=== PATIENT | female | born 1955 | race African-American/Black ===

== ENCOUNTER → 2016-09-27 | Outpatient (CLI) | payer OTHER ==
[2015-06-30 12:45] VITALS: BP 148/76
[~2016-09-27] MED LIST: AMLO1CAP15 PO; CRESTOR10 MG PO; LORA10TA68 PO; METF10002 PO
--- NOTE | 2016-09-28 12:56 | RAD ---
DATE: 09/27/2016 EXAM: DIGITAL SCREEN BILAT W/CAD HISTORY: Routine screening COMPARISON: Baseline study This study was interpreted with the benefit of Computerized Aided Detection (CAD). FINDINGS: There are scattered fibroglandular densities in the breasts. No suspicious mass or nodule is seen. There are scattered benign type calcifications. No suspicious microcalcifications are evident. IMPRESSION: There is no mammographic evidence of malignancy either breast. BI-RADS CATEGORY: 2 BENIGN FINDING(S) RECOMMENDED FOLLOW-UP: 12M 12 MONTH FOLLOW-UP PQRS compliance statement: Patient information was entered into a reminder system with a target due date for the next mammogram. Mammography is a sensitive method for finding small breast cancers, but it does not detect them all and is not a substitute for careful clinical examination. A negative mammogram does not negate a clinically suspicious finding and should not result in delay in biopsying a clinically suspicious abnormality. "Our facility is accredited by the [employer] Mammography Program."
== END | disposition home or self-care (01) ==
LOC: MAMMO 12:09
PROVIDERS: ATTEND Family Medicine
DX: Z12.31 Encounter for screening mammogram for malignant neoplasm of breast (principal)
CPT/HCPCS: G0202; 77067

== ENCOUNTER 2017-05-12 12:25 | Emergency (ER) | payer OTHER ==
[~2017-05-12] VITALS: Ht 162.6 cm; Wt 77.1 kg
[~2017-05-12 12:25] MED LIST changes: +METF-620 PO; -METF10002 PO
[2017-05-12] MEDS ORDERED: IV NORMAL SALINE 1000ML BAG 1,000 ML IV SCH (12:54)
[2017-05-12] MEDS ORDERED: FAMOTIDINE 20 MG/2 ML VIAL IVP ONE (13:00)
[2017-05-12] MEDS ORDERED: ONDANSETRON PF 4 MG/2 ML VIAL. IV ONE (13:00)
[2017-05-12] MEDS ORDERED: fentaNYL PF VIAL 100 MCG/2 ML VIAL IV PRN (13:00)
[2017-05-12 13:18] LABS: BILIRUBIN,URINE NEGATIVE (NEG); GLUCOSE,URINE 250 mg/dL (NEG); NITRITE,URINE NEGATIVE (NEG); PH,URINE 5.5; PROTEIN,URINE 30 mg/dL (NEG-TRACE)
[2017-05-12 13:19] LABS: BASO # 0.1 x10^3/uL (0.0-0.2); BASO % 1 % (0-3); EOS % 1 % (0-3); HEMATOCRIT 34.6 % (36.0-47.0); HEMOGLOBIN 11.3 g/dL (12.0-15.5); LYMPH % 23 % (24-48); MEAN CORPUSCULAR HEMOGLOBIN 28 pg (25-35); MEAN CORPUSCULAR HGB CONC 33 g/dL (31-37); MEAN CORPUSCULAR VOLUME 87 fL (79-100); MONO % 4 % (0-9); NEUT % 71 % (31-73); PLATELET COUNT 323 x10^3/uL (140-400); RED BLOOD COUNT 3.98 x10^6/uL (3.50-5.40); WHITE BLOOD COUNT 12.9 x10^3/uL (4.0-11.0)
--- NOTE | 2017-05-12 13:23 | EKG ---
[facility] [address] [place] [address] Test Date: 2017-05-12 Test Time: 12:56:43 Pat Name: MILTON DEJESUS Department: Room: Gender: F Superintendent Nonselling: : 1955 Requested By: JAIME GRANADO Order Number: [id number] Reading MD: Measurements Intervals Zenia Rate: 83 P: 50 WI: 134 QRS: 36 QRSD: 66 T: 52 QT: 364 QTc: 433 Interpretive Statements SINUS RHYTHM NO SPECIFIC ECG ABNORMALITIES RI6.01 No previous ECG available for comparison
[2017-05-12 13:24] LABS: CALCIUM 9.7 mg/dL (8.5-10.1); CREATININE 0.9 mg/dL (0.6-1.0); GFR 76.5; POTASSIUM 3.9 mmol/L (3.5-5.1)
[2017-05-12 13:29] LABS: BACTERIA,URINE MANY /HPF (0-FEW); SQUAMOUS EPITHELIAL CELL,UR MOD /LPF
[2017-05-12 13:30] LABS: ALBUMIN 3.1 g/dL (3.4-5.0); ALBUMIN/GLOBULIN RATIO 0.7 (1.0-1.7); TOTAL BILIRUBIN 0.4 mg/dL (0.2-1.0); TOTAL PROTEIN 7.4 g/dL (6.4-8.2)
[2017-05-12] MEDS ORDERED: IOHEXOL 300 MG/ML 100ML VIAL. IV ONE (14:00)
[2017-05-12] MEDS ORDERED: CONTRAST GIVEN MC PRN (14:00)
[2017-05-12] MEDS ORDERED: HYDR-971 PO (14:47)
[2017-05-12] MEDS ORDERED: ONDA4TAB10 SL (14:47)
--- NOTE | 2017-05-12 14:48 | PHYS DOC ---
Past Medical History Past Medical History: Diabetes-Type II, High Cholesterol, Hypertension Past Surgical History: Cholecystectomy Additional Information: 0.5 PPD Alcohol Use: None Drug Use: None Adult General Chief Complaint Chief Complaint: FLANK PAIN HPI HPI Patient is a 61 year old female who presents with complaint of right-sided abdominal pain. Patient states that her symptoms have been present over the past 3 days. Patient states that the pain feels like pressure and sharpness. The patient has history of hypertension and type 2 diabetes mellitus. Patient states that she is having pain radiating into her right shoulder. Patient took ibuprofen with no relief in symptoms. Patient denies history of similar pain. Patient has had history of cholecystectomy many years ago. Patient denies any other surgeries. Patient rates her pain currently as 9 out of 10. Review of Systems Review of Systems Constitutional: Denies fever or chills [] Eyes: Denies change in visual acuity, redness, or eye pain [] HENT: Denies nasal congestion or sore throat [] Respiratory: Denies cough or shortness of breath [] Cardiovascular: Denies chest pain or edema[] GI: Abdominal pain, denies nausea, vomiting, or diarrhea[] : Denies dysuria or hematuria [] Musculoskeletal: Denies back pain or joint pain [] Integument: Denies rash or skin lesions [] Neurologic: Denies headache, focal weakness or sensory changes [] All other systems were reviewed and found to be within normal limits, except as documented in this note. Current Medications Current Medications Current Medications Medications (Trade) Dose Ordered Sig/Jaskaran Start Time Stop Time Status Last Admin Dose Admin Famotidine (Pepcid Vial) 20 mg 1X ONCE 05/12/17 13:00 05/12/17 13:01 DC 05/12/17 13:22 20 MG Fentanyl Citrate (Fentanyl 2ml Vial) 50 mcg PRN Q15MIN PRN 05/12/17 13:00 05/13/17 12:59 05/12/17 13:22 50 MCG Info (Do NOT chart on this entry -- for MONITORING) 1 each PRN DAILY PRN 05/12/17 14:00 05/14/17 13:59 Iohexol (Omnipaque 300 Mg/ml) 75 ml 1X ONCE 05/12/17 14:00 05/12/17 14:01 DC 05/12/17 14:13 75 ML Ondansetron HCl (Zofran) 4 mg 1X ONCE 05/12/17 13:00 05/12/17 13:01 DC 05/12/17 13:21 4 MG Sodium Chloride 1,000 ml @ 1,000 mls/hr Q1H 05/12/17 12:54 05/12/17 13:53 DC 05/12/17 13:20 1,000 MLS/HR Allergies Allergies Allergies Coded Allergies Type Severity Reaction Last Updated Verified Penicillins Allergy Intermediate rash 06/30/15 No Physical Exam Physical Exam Constitutional: Alert, afebrile, appears in mild discomfort. [] HENT: Normocephalic, atraumatic, bilateral external ears normal, oropharynx moist, no oral exudates, nose normal. [] Eyes: PERRLA, EOMI, conjunctiva normal, no discharge. [] Neck: Normal range of motion, no tenderness, supple, no stridor. [] Cardiovascular:Heart rate regular rhythm, no murmur [] Lungs & Thorax: Bilateral breath sounds clear to auscultation [] Abdomen: Bowel sounds normal, soft, epigastric and right upper quadrant tenderness to palpation, minimal guarding, no rebound tenderness, no masses, no pulsatile masses. [] Skin: Warm, dry, no erythema, no rash. [] Back: No tenderness, no CVA tenderness. [] Extremities: No tenderness, no cyanosis, no clubbing, ROM intact, no edema. [] Neurologic: Alert and oriented X 3, normal motor function, normal sensory function, no focal deficits noted. [] Current Patient Data Vital Signs Vital Signs Date Time Temp Pulse Resp B/P (MAP) Pulse Ox O2 Delivery O2 Flow Rate FiO2 05/12/17 14:46 86 135/69 (91) Room Air 05/12/17 14:30 18 99 05/12/17 12:35 98.9 98.9 Lab Values Laboratory Tests Test 05/12/17 12:35 05/12/17 13:03 Urine Collection Type Unknown Urine Color Yellow Urine Clarity Clear Urine pH 5.5 Urine Specific Greer 1.020 Urine Protein 30 mg/dL (NEG-TRACE) Urine Glucose (UA) 250 mg/dL (NEG) Urine Ketones (Stick) Negative mg/dL (NEG) Urine Blood Negative (NEG) Urine Nitrite Negative (NEG) Urine Bilirubin Negative (NEG) Urine Urobilinogen Dipstick 1.0 mg/dL (0.2 mg/dL) Urine Leukocyte Esterase Trace (NEG) Urine RBC 1-2 /HPF (0-2) Urine WBC 1-4 /HPF (0-4) Urine Squamous Epithelial Cells Mod /LPF Urine Bacteria Many /HPF (0-FEW) Urine Mucus Mod /LPF White Blood Count 12.9 x10^3/uL (4.0-11.0) H Red Blood Count 3.98 x10^6/uL (3.50-5.40) Hemoglobin 11.3 g/dL (12.0-15.5) L Hematocrit 34.6 % (36.0-47.0) L Mean Corpuscular Volume 87 fL (79-100) Mean Corpuscular Hemoglobin 28 pg (25-35) Mean Corpuscular Hemoglobin Concent 33 g/dL (31-37) Red Cell Distribution Width 15.0 % (11.5-14.5) H Platelet Count 323 x10^3/uL (140-400) Neutrophils (%) (Auto) 71 % (31-73) Lymphocytes (%) (Auto) 23 % (24-48) L Monocytes (%) (Auto) 4 % (0-9) Eosinophils (%) (Auto) 1 % (0-3) Basophils (%) (Auto) 1 % (0-3) Neutrophils # (Auto) 9.1 x10^3uL (1.8-7.7) H Lymphocytes # (Auto) 3.0 x10^3/uL (1.0-4.8) Monocytes # (Auto) 0.6 x10^3/uL (0.0-1.1) Eosinophils # (Auto) 0.1 x10^3/uL (0.0-0.7) Basophils # (Auto) 0.1 x10^3/uL (0.0-0.2) Sodium Level 136 mmol/L (136-145) Potassium Level 3.9 mmol/L (3.5-5.1) Chloride Level 101 mmol/L (98-107) Carbon Dioxide Level 27 mmol/L (21-32) Anion Gap 8 (6-14) Blood Urea Nitrogen 18 mg/dL (7-20) Creatinine 0.9 mg/dL (0.6-1.0) Estimated GFR (Cockcroft-Gault) 76.5 BUN/Creatinine Ratio 20 (6-20) Glucose Level 241 mg/dL (70-99) H Calcium Level 9.7 mg/dL (8.5-10.1) Total Bilirubin 0.4 mg/dL (0.2-1.0) Aspartate Amino Transferase (AST) 12 U/L (15-37) L Alanine Aminotransferase (ALT) 19 U/L (14-59) Alkaline Phosphatase 120 U/L (46-116) H Total Protein 7.4 g/dL (6.4-8.2) Albumin 3.1 g/dL (3.4-5.0) L Albumin/Globulin Ratio 0.7 (1.0-1.7) L Lipase 446 U/L (73-393) H Laboratory Tests 05/12/17 13:03 Laboratory Tests 05/12/17 13:03 EKG EKG Interpreted by me: Heart rate 83, sinus rhythm, normal intervals, normal axis, no acute ST/T-wave abnormalities present[] Radiology/Procedures Radiology/Procedures [facility] [address] [place] [address] IMAGING REPORT Signed PATIENT: MILTON DEJESUS ACCOUNT: [id number] : 1955 LOCATION: ER AGE: 61 SEX: F EXAM STATUS: REG ER ORD. PHYSICIAN: JAIME GRANADO MD REASON: RUQ abdominal pain, pancreatitis, history of cholecystectomy PROCEDURE: CT ABD PELV W/ IV CONTRST ONLY CT ABD PELV W/ IV CONTRST ONLY History:Right upper quadrant abdominal pain, pancreatitis, history of cholecystectomy. Technique: After administration of intravenous contrast, CT imaging was performed of the abdomen and pelvis, multiplanar reconstruction images submitted. No oral contrast was given as per request. Exposure: One or more of the following individualized dose reduction techniques were utilized for this exam: 1. Automated exposure control.2. Adjustment of the mA and/or KV according to patient size.3. Use of iterative reconstruction technique. Contrast: 75 cc Omnipaque 300 Comparison: None Findings: There is coronary calcification. There is mild atelectasis of the lung bases. Both kidneys enhance, no hydronephrosis. Small hypodense lesion of the superior left kidney 0.5 cm is too small to otherwise accurately characterize. There is diffuse atherosclerotic calcification normal caliber abdominal aorta. 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 There are also stenoses of the common iliac arteries greater on the left. No focal abnormality is identified of the liver or spleen. Pancreatic duct at the level of pancreatic head is slightly prominent, also vague area of relative hypodensity of the pancreatic head. Accurate evaluation of bowel is limited without oral contrast. There is no free air or free fluid. Segments of small bowel are upper limits of normal in caliber up to 3.9 cm. Ureter bladder is somewhat distended. Appendix is difficult to confidently visualize. There has been cholecystectomy. Impression: 1.Pancreatic duct at the level of the pancreatic head is slightly prominent, some vague relative hypodensity of the pancreatic head which could be due to pancreatitis in the appropriate clinical setting. Follow-up may be beneficial to ensure stability. There has been cholecystectomy. 2. Segments of small bowel are upper limits of normal caliber with some internal fluid although no significant inflammatory change. 3. 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 There are also stenoses of the common iliac arteries greater on the left. 4. There is coronary calcification. DICTATED and SIGNED BY: YENY VENTURA MD DATE: 05/12/17 1442 CC: SONIDO BOONE JR, MD; JAIME GRANADO MD ~ [] Course & Med Decision Making Course & Med Decision Making Pertinent Labs and Imaging studies reviewed. (See chart for details) Patient was given IV fluids, fentanyl, Zofran, and Pepcid. Patient's symptoms have improved at this time. The patient has evidence of acute pancreatitis. Etiology is not quite clear as to the cause however her symptoms appear mild at this time and patient is appropriate for outpatient referral. Patient was also noted to have signs of mesenteric artery stenosis. The patient is not showing evidence of acute mesenteric ischemia. I did speak with the patient regarding this finding and need for close follow-up. Patient will be referred to Dr. Jacques of gastroenterology. The patient was also recommended follow-up with primary doctor in 2-3 days for reevaluation. Advised return emergency department for any worsening symptoms. Patient voiced understanding and in agreement with treatment plan. Dragon Disclaimer Dragon Disclaimer This electronic medical record was generated, in whole or in part, using a voice recognition dictation system. Departure Departure Impression: Primary Impression: Acute pancreatitis Disposition: 01 HOME, SELF-CARE Condition: IMPROVED Referrals: SONIDO BOONE JR, MD (PCP) Patient Instructions: Acute Pancreatitis Additional Instructions: Follow-up with the primary doctor in the next 2-3 days for reevaluation. Be sure to schedule a follow-up appointment with Dr. Jacques of gastroenterology in 1-2 weeks. You'll need to continue with a clear liquid diet over the next 24- 48 hours until symptoms improve, then you may eat a regular diet as tolerated. Return to emergency department for any worsening symptoms. Scripts Ondansetron (ZOFRAN ODT) 4 Mg Tab.rapdis 1 TAB SL Q8HRS Y for NAUSEA/VOMITING, #15 TAB Prov: JAIME GRANADO MD 05/12/17 Hydrocodone/Apap 5-325 (NORCO 5-325 TABLET) 1 Each Tablet 1-2 TAB PO Q4-6HRS Y for PAIN, #20 TAB Prov: JAIME GRANADO MD 05/12/17 Problem Qualifiers Primary Impression: Acute pancreatitis Pancreatitis type: idiopathic Acute pancreatitis complication: unspecified Qualified Codes: K85.00 - Idiopathic acute pancreatitis without necrosis or infection JAIME GRANADO MD May 12, 2017 14:48
--- NOTE | 2017-05-12 14:54 | RAD ---
CT ABD PELV W/ IV CONTRST ONLY History:Right upper quadrant abdominal pain, pancreatitis, history of cholecystectomy. Technique: After administration of intravenous contrast, CT imaging was performed of the abdomen and pelvis, multiplanar reconstruction images submitted. No oral contrast was given as per request. Exposure: One or more of the following individualized dose reduction techniques were utilized for this exam: 1. Automated exposure control.2. Adjustment of the mA and/or KV according to patient size.3. Use of iterative reconstruction technique. Contrast: 75 cc Omnipaque 300 Comparison: None Findings: There is coronary calcification. There is mild atelectasis of the lung bases. Both kidneys enhance, no hydronephrosis. Small hypodense lesion of the superior left kidney 0.5 cm is too small to otherwise accurately characterize. There is diffuse atherosclerotic calcification normal caliber abdominal aorta. 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 There are also stenoses of the common iliac arteries greater on the left. No focal abnormality is identified of the liver or spleen. Pancreatic duct at the level of pancreatic head is slightly prominent, also vague area of relative hypodensity of the pancreatic head. Accurate evaluation of bowel is limited without oral contrast. There is no free air or free fluid. Segments of small bowel are upper limits of normal in caliber up to 3.9 cm. Ureter bladder is somewhat distended. Appendix is difficult to confidently visualize. There has been cholecystectomy. Impression: 1.Pancreatic duct at the level of the pancreatic head is slightly prominent, some vague relative hypodensity of the pancreatic head which could be due to pancreatitis in the appropriate clinical setting. Follow-up may be beneficial to ensure stability. There has been cholecystectomy. 2. Segments of small bowel are upper limits of normal caliber with some internal fluid although no significant inflammatory change. 3. 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 There are also stenoses of the common iliac arteries greater on the left. 4. There is coronary calcification.
[2017-05-12 15:00] VITALS: BP 130/66
== END 2017-05-12 15:17 | disposition home or self-care (01) ==
LOC: ER 12:25
DX: K85.00 Idiopathic acute pancreatitis without necrosis or infection (principal); E11.9 Type 2 diabetes mellitus without complications; E78.00 Pure hypercholesterolemia, unspecified; I10 Essential (primary) hypertension; F17.200 Nicotine dependence, unspecified, uncomplicated; Z90.49 Acquired absence of other specified parts of digestive tract; Z88.0 Allergy status to penicillin
CPT/HCPCS: 36415; 74177; 80053; 81001; 83690; 85025; 87086; 93005; 96361; 96374; 96375; 99285; J2405; J3010; J7030; Q9967; S0028

== ENCOUNTER 2018-03-07 13:48 | Emergency (ER) | payer OTHER ==
[~2018-03-07] VITALS: Ht 162.6 cm; Wt 88.9 kg
[~2018-03-07 13:48] MED LIST changes: +HYDR-971 PO; -METF-620 PO; +METF10007 PO; +ONDA4TAB10 SL
[2018-03-07 14:30] VITALS: BP 172/80
[2018-03-07] MEDS ORDERED: CLIN150C14 PO (15:16)
[2018-03-07] MEDS ORDERED: NAPR-695 PO (15:16)
--- NOTE | 2018-03-07 15:17 | PHYS DOC ---
Past Medical History Past Medical History: Diabetes-Type II, High Cholesterol, Hypertension Past Surgical History: Cholecystectomy Alcohol Use: None Drug Use: None Adult General Chief Complaint Chief Complaint: SORE THROAT HPI HPI Patient is a 62 year old [f__sex] who presents with [] Review of Systems Review of Systems Constitutional: Denies fever or chills [] Eyes: Denies change in visual acuity, redness, or eye pain [] HENT: Denies nasal congestion or sore throat [] Respiratory: Denies cough or shortness of breath [] Cardiovascular: No additional information not addressed in HPI [] GI: Denies abdominal pain, nausea, vomiting, bloody stools or diarrhea [] : Denies dysuria or hematuria [] Musculoskeletal: Denies back pain or joint pain [] Integument: Denies rash or skin lesions [] Neurologic: Denies headache, focal weakness or sensory changes [] Endocrine: Denies polyuria or polydipsia [] All other systems were reviewed and found to be within normal limits, except as documented in this note. Allergies Allergies Allergies Coded Allergies Type Severity Reaction Last Updated Verified Penicillins Allergy Intermediate rash 06/30/15 No Physical Exam Physical Exam Constitutional: Well developed, well nourished, no acute distress, non-toxic appearance. [] HENT: Normocephalic, atraumatic, bilateral external ears normal, oropharynx moist, no oral exudates, nose normal. [] Eyes: PERRLA, EOMI, conjunctiva normal, no discharge. [] Neck: Normal range of motion, no tenderness, supple, no stridor. [] Cardiovascular:Heart rate regular rhythm, no murmur [] Lungs & Thorax: Bilateral breath sounds clear to auscultation [] Abdomen: Bowel sounds normal, soft, no tenderness, no masses, no pulsatile masses. [] Skin: Warm, dry, no erythema, no rash. [] Back: No tenderness, no CVA tenderness. [] Extremities: No tenderness, no cyanosis, no clubbing, ROM intact, no edema. [] Neurologic: Alert and oriented X 3, normal motor function, normal sensory function, no focal deficits noted. [] Psychologic: Affect normal, judgement normal, mood normal. [] Current Patient Data Lab Values Laboratory Tests Test 03/07/18 14:45 Group A Streptococcus Rapid Negative (NEGATIVE) EKG EKG [] Radiology/Procedures Radiology/Procedures [] Course & Med Decision Making Course & Med Decision Making Pertinent Labs and Imaging studies reviewed. (See chart for details) [] Dragon Disclaimer Dragon Disclaimer This electronic medical record was generated, in whole or in part, using a voice recognition dictation system. Departure Departure Impression: Primary Impression: Dental abscess Additional Impression: Chronic dental pain Disposition: HOME, SELF-CARE Condition: STABLE Referrals: UNKNOWN PCP NAME (PCP) Patient Instructions: Dental Abscess, Dental Pain, [id number] Additional Instructions: Fill the prescriptions and use as directed. Follow up with a dentist for further treatment of you symptoms. A dental list has been provided to you. Return to the ER if your symptoms worsen. Scripts Naproxen (NAPROXEN) 375 Mg Tablet 1 TAB PO BID for 10 Days, #20 TAB 0 Refills Prov: TERA DALY APRN 03/07/18 Clindamycin Hcl (CLINDAMYCIN HCL) 150 Mg Capsule 450 MG PO TID for 10 Days, #90 CAP 0 Refills Prov: TERA DALY STICK FEEDER 03/07/18 Problem Qualifiers TERA DALY STICK FEEDER Mar 07, 2018 15:17
== END 2018-03-07 15:26 | disposition home or self-care (01) ==
LOC: ER 13:48
DX: K04.7 Periapical abscess without sinus (principal); G89.29 Other chronic pain; E11.9 Type 2 diabetes mellitus without complications; E78.00 Pure hypercholesterolemia, unspecified; I10 Essential (primary) hypertension; Z90.49 Acquired absence of other specified parts of digestive tract; Z88.0 Allergy status to penicillin
CPT/HCPCS: 87070; 87880; 99283

== ENCOUNTER 2018-03-14 15:01 | Emergency (ER) | payer OTHER ==
[~2018-03-14] VITALS: Ht 162.6 cm; Wt 79.4 kg
[~2018-03-14 15:01] MED LIST changes: +CLIN150C14 PO; +NAPR-695 PO
[2018-03-14 15:06] VITALS: BP 161/77
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
[2018-03-14] MEDS ORDERED: DICL50TA4 PO (17:45)
[2018-03-14] MEDS ORDERED: CYCL10TA2 PO (17:45)
== END 2018-03-14 17:58 | disposition home or self-care (01) ==
LOC: ER 15:01
DX: S16.1XXA Strain of muscle, fascia and tendon at neck level, initial encounter (principal); M54.6 Pain in thoracic spine; R07.81 Pleurodynia; E78.00 Pure hypercholesterolemia, unspecified; E11.9 Type 2 diabetes mellitus without complications; I10 Essential (primary) hypertension; Z88.0 Allergy status to penicillin; V43.52XA Car driver injured in collision with other type car in traffic accident, initial encounter; Y92.488 Other paved roadways as the place of occurrence of the external cause; Y93.89 Activity, other specified; Y99.8 Other external cause status
CPT/HCPCS: 71101; 72040; 72072; 99284

== ENCOUNTER 2018-10-02 11:20 | Emergency (ER) | payer OTHER ==
[~2018-10-02] VITALS: Ht 162.6 cm; Wt 77.1 kg
[~2018-10-02 11:20] MED LIST changes: +CYCL10TA2 PO; +DICL50TA4 PO; +HYDR-3164 PO; -HYDR-971 PO
[2018-10-02] MEDS ORDERED: DEXAMETHASONE 4 MG TABLET PO ONE (12:00)
--- NOTE | 2018-10-02 12:23 | RAD ---
Chest, 2 views, 10/02/2018 HISTORY: Cough, mucus, chest pain Comparison is made to a study from 03/14/2018. The depth of inspiration is suboptimal on the PA view producing prominence of the basilar pulmonary markings. The heart size is normal. No pulmonary consolidation is seen. There is no evidence of pleural fluid. Mild scattered degenerative changes are evident in the spine. IMPRESSION: No acute abnormality is detected. Electronically signed by: Ha Burrell MD (10/02/2018 12:21 PM) [facility]
[2018-10-02] MEDS ORDERED: PRED20TA PO (13:26)
[2018-10-02] MEDS ORDERED: BENZ100C PO (13:26)
--- NOTE | 2018-10-02 13:26 | PHYS DOC ---
Past Medical History Past Medical History: Diabetes-Type II, High Cholesterol, Hypertension Past Surgical History: Cholecystectomy Alcohol Use: Occasionally Drug Use: None Adult General Chief Complaint Chief Complaint: COUGH HPI HPI Patient is a 63 year old [f__sex] who presents with [] Review of Systems Review of Systems Constitutional: Denies fever or chills [] Eyes: Denies change in visual acuity, redness, or eye pain [] HENT: Denies nasal congestion or sore throat [] Respiratory: Denies cough or shortness of breath [] Cardiovascular: No additional information not addressed in HPI [] GI: Denies abdominal pain, nausea, vomiting, bloody stools or diarrhea [] : Denies dysuria or hematuria [] Musculoskeletal: Denies back pain or joint pain [] Integument: Denies rash or skin lesions [] Neurologic: Denies headache, focal weakness or sensory changes [] Endocrine: Denies polyuria or polydipsia [] All other systems were reviewed and found to be within normal limits, except as documented in this note. Current Medications Current Medications Current Medications Medications (Trade) Dose Ordered Sig/Jaskaran Start Time Stop Time Status Last Admin Dose Admin Dexamethasone (Decadron) 10 mg 1X ONCE 10/02/18 12:00 10/02/18 12:01 DC 10/02/18 12:09 10 MG Allergies Allergies Allergies Coded Allergies Type Severity Reaction Last Updated Verified Penicillins Allergy Intermediate rash 06/30/15 No Physical Exam Physical Exam Constitutional: Well developed, well nourished, no acute distress, non-toxic appearance. [] HENT: Normocephalic, atraumatic, bilateral external ears normal, oropharynx moist, no oral exudates, nose normal. [] Eyes: PERRLA, EOMI, conjunctiva normal, no discharge. [] Neck: Normal range of motion, no tenderness, supple, no stridor. [] Cardiovascular:Heart rate regular rhythm, no murmur [] Lungs & Thorax: Bilateral breath sounds clear to auscultation [] Abdomen: Bowel sounds normal, soft, no tenderness, no masses, no pulsatile masses. [] Skin: Warm, dry, no erythema, no rash. [] Back: No tenderness, no CVA tenderness. [] Extremities: No tenderness, no cyanosis, no clubbing, ROM intact, no edema. [] Neurologic: Alert and oriented X 3, normal motor function, normal sensory function, no focal deficits noted. [] Psychologic: Affect normal, judgement normal, mood normal. [] Current Patient Data Vital Signs Vital Signs Date Time Temp Pulse Resp B/P (MAP) Pulse Ox O2 Delivery O2 Flow Rate FiO2 10/02/18 11:41 98.5 16 163/75 (104) 95 Room Air 98.5 EKG EKG @1132 NSR at 85bpm, NO ST elevation, Q wave in III Radiology/Procedures Radiology/Procedures PROCEDURE: CHEST PA & LATERAL Chest, 2 views, 10/02/2018 HISTORY: Cough, mucus, chest pain Comparison is made to a study from 03/14/2018. The depth of inspiration is suboptimal on the PA view producing prominence of the basilar pulmonary markings. The heart size is normal. No pulmonary consolidation is seen. There is no evidence of pleural fluid. Mild scattered degenerative changes are evident in the spine. IMPRESSION: No acute abnormality is detected. Electronically signed by: Ha Burrell MD (10/02/2018 12:21 PM) [facility] Course & Med Decision Making Course & Med Decision Making Pertinent Labs and Imaging studies reviewed. (See chart for details) [] Dragon Disclaimer Dragon Disclaimer This electronic medical record was generated, in whole or in part, using a voice recognition dictation system. Departure Departure Impression: Primary Impression: Bronchitis Disposition: 01 HOME, SELF-CARE Condition: STABLE Referrals: UNKNOWN PCP NAME (PCP) Patient Instructions: Acute Bronchitis, [id number] Scripts Benzonatate (TESSALON PERLE) 100 Mg Capsule 100 MG PO TID PRN for COUGH, #20 CAP Prov: REMBERTO RANKIN DO 10/02/18 Prednisone (PREDNISONE) 20 Mg Tablet 2 TAB PO DAILY, #8 TAB Please start this prescription tomorrow, 10/03/18 Prov: REMBERTO RANKIN DO 10/02/18 REMBERTO RANKIN DO Oct 02, 2018 13:26
[2018-10-02 13:29] VITALS: BP 166/77
--- NOTE | 2018-10-02 15:59 | EKG ---
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
== END 2018-10-02 13:29 | disposition home or self-care (01) ==
LOC: ER 11:20
DX: J40 Bronchitis, not specified as acute or chronic (principal); R07.89 Other chest pain; E11.9 Type 2 diabetes mellitus without complications; E78.00 Pure hypercholesterolemia, unspecified; I10 Essential (primary) hypertension; Z90.49 Acquired absence of other specified parts of digestive tract; Z88.0 Allergy status to penicillin
CPT/HCPCS: 71046; 93005; 99284; J8540

== ENCOUNTER 2018-11-04 08:45 | Emergency (ER) | payer OTHER ==
[~2018-11-04] VITALS: Ht 162.6 cm; Wt 77.1 kg
[2018-11-04 08:45] VITALS: BP 176/83
[~2018-11-04 08:45] MED LIST changes: +BENZ100C PO; +PRED20TA PO
[2018-11-04 09:07] LABS: BASO # 0.1 x10^3/uL (0.0-0.2); BASO % 1 % (0-3); EOS # 0.1 x10^3/uL (0.0-0.7); EOS % 1 % (0-3); HEMATOCRIT 35.7 % (36.0-47.0); HEMOGLOBIN 11.8 g/dL (12.0-15.5); LYMPH # 3.3 x10^3/uL (1.0-4.8); LYMPH % 26 % (24-48); MEAN CORPUSCULAR HEMOGLOBIN 28 pg (25-35); MEAN CORPUSCULAR HGB CONC 33 g/dL (31-37); MEAN CORPUSCULAR VOLUME 85 fL (79-100); MONO # 0.6 x10^3/uL (0.0-1.1); MONO % 4 % (0-9); NEUT # 8.6 x10^3uL (1.8-7.7); NEUT % 68 % (31-73); PLATELET COUNT 330 x10^3/uL (140-400); RED CELL DISTRIBUTION WIDTH 15.8 % (11.5-14.5); WHITE BLOOD COUNT 12.7 x10^3/uL (4.0-11.0)
[2018-11-04 09:10] LABS: CALCIUM 9.4 mg/dL (8.5-10.1); CREATININE 0.9 mg/dL (0.6-1.0)
--- NOTE | 2018-11-04 09:12 | PHYS DOC ---
Past Medical History Past Medical History: Diabetes-Type II, High Cholesterol, Hypertension (SUDARSHAN FLORES APRN) Past Surgical History: Cholecystectomy (SUDARSHAN FLORES APRN) Alcohol Use: Occasionally Drug Use: None (SUDARSHAN FLORES APRN) Adult General Chief Complaint Chief Complaint: DIZZY/LIGHT HEADED HPI HPI Patient is a 63 year old female who presents with dizziness upon standing this morning. The patient states that she felt like she was going to pass out for a minute. She states that she recently saw her physician for a persistent cough and was given codeine cough medication. She states that the Mucinex in the medication made her sick. She states that she has continued to have a persistent cough. The patient is a heavy smoker. She denies chest pain, current dizziness or other associated symptoms. (SUDARSHAN FLORES APRN) Review of Systems Review of Systems Constitutional: Denies fever or chills [] Eyes: Denies change in visual acuity, redness, or eye pain [] HENT: Denies nasal congestion or sore throat [] Respiratory: See history of present illness Cardiovascular: No additional information not addressed in HPI [] GI: Denies abdominal pain, nausea, vomiting, bloody stools or diarrhea [] : Denies dysuria or hematuria [] Musculoskeletal: Denies back pain or joint pain [] Integument: Denies rash or skin lesions [] Neurologic: See history of present illness Endocrine: Denies polyuria or polydipsia [] All other systems were reviewed and found to be within normal limits, except as documented in this note. (SUDARSHAN FLORES APRN) Allergies Allergies Allergies Coded Allergies Type Severity Reaction Last Updated Verified Penicillins Allergy Intermediate rash 06/30/15 No (LIONEL BILLS MD) Physical Exam Physical Exam Constitutional: Well developed, well nourished, no acute distress, non-toxic appearance. [] HENT: Normocephalic, atraumatic, bilateral and panic membranes normal, oropharynx moist, no oral exudates, nose normal. [] Eyes: PERRLA, EOMI, conjunctiva normal, no discharge. [] Neck: Normal range of motion, no tenderness, supple, no stridor. [] Cardiovascular:Heart rate regular rhythm, no murmur [] Lungs & Thorax: Bilateral breath sounds clear to auscultation with no wheezes or rhonchi noted, hacking cough noted [] Abdomen: Bowel sounds normal, soft, no tenderness, no masses, no pulsatile masses. [] Skin: Warm, dry, no erythema, no rash. [] Back: No tenderness, no CVA tenderness. [] Extremities: No tenderness, no cyanosis, no clubbing, ROM intact, no edema. [] Neurologic: Alert and oriented X 3, normal motor function, normal sensory function, no focal deficits noted, cranial nerves II through XII are grossly intact. [] Psychologic: Affect normal, judgement normal, mood normal. [] (SUDARSHAN FLORES APRN) Current Patient Data Vital Signs Vital Signs Date Time Temp Pulse Resp B/P (MAP) Pulse Ox O2 Delivery O2 Flow Rate FiO2 11/04/18 08:45 98.7 86 20 176/83 (114) 99 Room Air 98.7 (LIONEL BILLS MD) Lab Values Laboratory Tests Test 11/04/18 08:50 11/04/18 10:39 White Blood Count 12.7 x10^3/uL (4.0-11.0) H Red Blood Count 4.20 x10^6/uL (3.50-5.40) Hemoglobin 11.8 g/dL (12.0-15.5) L Hematocrit 35.7 % (36.0-47.0) L Mean Corpuscular Volume 85 fL (79-100) Mean Corpuscular Hemoglobin 28 pg (25-35) Mean Corpuscular Hemoglobin Concent 33 g/dL (31-37) Red Cell Distribution Width 15.8 % (11.5-14.5) H Platelet Count 330 x10^3/uL (140-400) Neutrophils (%) (Auto) 68 % (31-73) Lymphocytes (%) (Auto) 26 % (24-48) Monocytes (%) (Auto) 4 % (0-9) Eosinophils (%) (Auto) 1 % (0-3) Basophils (%) (Auto) 1 % (0-3) Neutrophils # (Auto) 8.6 x10^3uL (1.8-7.7) H Lymphocytes # (Auto) 3.3 x10^3/uL (1.0-4.8) Monocytes # (Auto) 0.6 x10^3/uL (0.0-1.1) Eosinophils # (Auto) 0.1 x10^3/uL (0.0-0.7) Basophils # (Auto) 0.1 x10^3/uL (0.0-0.2) Sodium Level 140 mmol/L (136-145) Potassium Level 4.0 mmol/L (3.5-5.1) Chloride Level 105 mmol/L (98-107) Carbon Dioxide Level 25 mmol/L (21-32) Anion Gap 10 (6-14) Blood Urea Nitrogen 14 mg/dL (7-20) Creatinine 0.9 mg/dL (0.6-1.0) Estimated GFR (Cockcroft-Gault) 76.0 BUN/Creatinine Ratio 16 (6-20) Glucose Level 192 mg/dL (70-99) H Calcium Level 9.4 mg/dL (8.5-10.1) Total Bilirubin 0.4 mg/dL (0.2-1.0) Aspartate Amino Transferase (AST) 14 U/L (15-37) L Alanine Aminotransferase (ALT) 23 U/L (14-59) Alkaline Phosphatase 122 U/L (46-116) H Total Protein 7.0 g/dL (6.4-8.2) Albumin 2.9 g/dL (3.4-5.0) L Albumin/Globulin Ratio 0.7 (1.0-1.7) L Urine Collection Type Void Urine Color Yellow Urine Clarity Clear Urine pH 6.0 Urine Specific [place] 1.010 Urine Protein 100 mg/dL (NEG-TRACE) Urine Glucose (UA) Negative mg/dL (NEG) Urine Ketones (Stick) Negative mg/dL (NEG) Urine Blood Negative (NEG) Urine Nitrite Negative (NEG) Urine Bilirubin Negative (NEG) Urine Urobilinogen Dipstick 1.0 mg/dL (0.2 mg/dL) Urine Leukocyte Esterase Negative (NEG) Urine RBC Occ /HPF (0-2) Urine WBC 1-4 /HPF (0-4) Urine Squamous Epithelial Cells Mod /LPF Urine Bacteria Few /HPF (0-FEW) Laboratory Tests 11/04/18 08:50 Laboratory Tests 11/04/18 08:50 (LIONEL BILLS MD) EKG EKG [] (SUDARSHAN FLORES APRN) Radiology/Procedures Radiology/Procedures [] (SUDARSHAN FLORES APRN) Course & Med Decision Making Course & Med Decision Making Pertinent Labs and Imaging studies reviewed. (See chart for details) []The patient will be discharged home. She is to take the antibiotic for her pneumonia. She has been given a prescription for Tessalon Perles, which she states works very well for her cough. She does have an albuterol inhaler at home which she is to use 4 times daily for the next week. She is in agreement with this plan. (SUDARSHAN FLORES APRN) Course & Med Decision Making Staff Physician Addendum: I was working in the ER during the course of this patient's visit. I was available for consultation as needed, but I was not directly involved in the care of this patient. (LIONEL BILLS MD) Dragon Disclaimer Dragon Disclaimer This electronic medical record was generated, in whole or in part, using a voice recognition dictation system. (SUDARSHAN FLORES APRN) Departure Departure Impression: Primary Impression: Pneumonia Additional Impression: Dizziness Disposition: 01 HOME, SELF-CARE Condition: STABLE Referrals: UNKNOWN PCP NAME (PCP) Patient Instructions: Pneumonia, Adult Additional Instructions: Stop smoking. Take the medications as directed. Use your at home inhaler 4 times daily. Follow-up with your primary care provider in one week for recheck or return to the emergency department if worsening. Scripts Benzonatate (TESSALON PERLE) 100 Mg Capsule 1 CAP PO TID for cough, #21 CAP Prov: SUDARSHAN FLORES APRN 11/04/18 Azithromycin (ZITHROMAX) 250 Mg Tablet 1 PKG PO UD for pneumonia, #1 PKG Prov: SUDARSHAN FLORES APRN 11/04/18 Problem Qualifiers SUDARSHAN FLORES APRN November 04, 2018 09:12 LIONEL BILLS MD November 05, 2018 18:22
[2018-11-04 09:16] LABS: ALBUMIN 2.9 g/dL (3.4-5.0); ALBUMIN/GLOBULIN RATIO 0.7 (1.0-1.7); TOTAL BILIRUBIN 0.4 mg/dL (0.2-1.0)
--- NOTE | 2018-11-04 09:26 | RAD ---
Chest, PA and Lateral: Technique: PA and lateral views of the chest were obtained. History: Cough. Comparison: 10/02/2018. Findings: The cardiomediastinal silhouette grossly appears unremarkable. Mild bibasilar lung airspace opacities likely atelectasis or infiltrates. Moderate degenerative changes thoracic spine. IMPRESSION: Mild bibasilar lung airspace opacities likely atelectasis or infiltrates slightly improved since prior exam. Electronically signed by: Blayne Finnegan MD (11/04/2018 9:23 AM) [place] [id number]
--- NOTE | 2018-11-04 10:41 | EKG ---
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
[2018-11-04 10:56] LABS: BILIRUBIN,URINE NEGATIVE (NEG); CLARITY,URINE CLEAR; COLOR,URINE YELLOW; NITRITE,URINE NEGATIVE (NEG); PROTEIN,URINE 100 mg/dL (NEG-TRACE)
[2018-11-04 11:16] LABS: BACTERIA,URINE FEW /HPF (0-FEW); RBC,URINE OCC /HPF (0-2); SQUAMOUS EPITHELIAL CELL,UR MOD /LPF
[2018-11-04] MEDS ORDERED: AZIT250T PO (11:47)
[2018-11-04] MEDS ORDERED: BENZ100C PO (11:47)
== END 2018-11-04 11:50 | disposition home or self-care (01) ==
LOC: ER 08:45
DX: J18.9 Pneumonia, unspecified organism (principal); R42 Dizziness and giddiness; I10 Essential (primary) hypertension; E11.9 Type 2 diabetes mellitus without complications; E78.00 Pure hypercholesterolemia, unspecified; Z88.0 Allergy status to penicillin
CPT/HCPCS: 36415; 71046; 80053; 81001; 85025; 93005; 99285-25

== ENCOUNTER 2019-02-20 23:43 | Emergency (ER) | payer OTHER ==
[~2019-02-20] VITALS: Ht 162.6 cm; Wt 76.7 kg
[~2019-02-20 23:43] MED LIST changes: -AMLO1CAP15 PO; +AMLO1CAP54 PO; +AZIT250T PO
[2019-02-21 00:18] VITALS: BP 159/74
[2019-02-21] MEDS ORDERED: SULF1TAB24 PO (00:21)
[2019-02-21] MEDS ORDERED: HYDR453.3 TP (00:21)
--- NOTE | 2019-02-21 00:22 | PHYS DOC ---
Past Medical History Past Medical History: Diabetes-Type II, High Cholesterol, Hypertension (PEGGY JOSEPH APRN) Past Surgical History: Cholecystectomy (PEGGY JOSEPH APRN) Alcohol Use: Occasionally Drug Use: None (PEGGY JOSEPH APRN) Adult General Chief Complaint Chief Complaint: INSECT BITE HPI HPI Patient is a 63 year old female who presents with patient has a insect bite to the middle of her forehead right between the eyes. The area is reddened and swollen and patient states his itching. Patient states it happened a couple hours before her arrival. Patient states she is worried that it was a brown recluse that she heard brown recluses lay their eggs under the skin. Patient states she is also diabetic and is worried about infection. Patient rates her pain a 9 out of 10 and states she is starting to get a frontal headache from it. (PEGGY JOSEPH APRN) Review of Systems Review of Systems Constitutional: Denies fever or chills [] Eyes: Denies change in visual acuity, redness, or eye pain [] Integument: Insect bite to middle of forehead between the eyes. Denies rash or skin lesions [] Neurologic: Frontal headache, denies focal weakness or sensory changes [] All other systems were reviewed and found to be within normal limits, except as documented in this note. (PEGGY JOSEPH APRN) Allergies Allergies Allergies Coded Allergies Type Severity Reaction Last Updated Verified Penicillins Allergy Intermediate rash 06/30/15 No (REMBERTO RANKIN DO) Physical Exam Physical Exam Constitutional: Well developed, well nourished, no acute distress, non-toxic appearance. [] Eyes: PERRLA, EOMI, conjunctiva normal, no discharge. [] Skin: Dime-sized insect bite to forehead and between the eyes. Warm, dry, no erythema, no rash. [] Neurologic: Alert and oriented X 3, normal motor function, normal sensory function, no focal deficits noted. [] Psychologic: Affect normal, judgement normal, mood normal. [] (PEGGY JOSEPH APRN) Current Patient Data Vital Signs Vital Signs Date Time Temp Pulse Resp B/P (MAP) Pulse Ox O2 Delivery O2 Flow Rate FiO2 02/21/19 00:18 97.9 85 16 159/74 (102) 94 Room Air 97.9 (RANKINREMBERTO Jesus MAE) EKG EKG [] (PEGGY JOSEPH APRN) Radiology/Procedures Radiology/Procedures [] (PEGGY JOSEPH APRN) Course & Med Decision Making Course & Med Decision Making Patient is a 63 year old female who presents with patient has a insect bite to the middle of her forehead right between the eyes. The area is reddened and swollen and patient states his itching. Patient states it happened a couple hours before her arrival. Patient states she is worried that it was a brown recluse that she heard brown recluses lay their eggs under the skin. Patient states she is also diabetic and is worried about infection. Patient rates her pain a 9 out of 10 and states she is starting to get a frontal headache from it. Alert and oriented. Skin pink warm and dry. PERRLA. Ambulatory. with a steady gait. Speaks in Full clear sentences. Area of the bite is the size of a dime. There is no drainage or signs of infection at this time. Patient is told that brown recluses do not lay there eggs under the skin. Patient is told that is unlikely as she has an infection at this time. Patient states she cannot take anything for pain. Patient is told to take ibuprofen for pain. Patient is again very concerned about infection. Vital signs are within normal limits. Patient is given a prescription for hydrocortisone cream and told to take ibuprofen for pain or pain. Patient is told that if in 48 hours she is not any better or there are signs of infection she can take the Bactrim antibiotic prescribed for her. Patient is told should also follow up with her primary care provider. Patient is educated on signs of infection such as redness, increased swelling, fever, drainage. (PEGGY JOSEPH APRN) Dragon Disclaimer Dragon Disclaimer This electronic medical record was generated, in whole or in part, using a voice recognition dictation system. (PEGGY JOSEPH APRN) Departure Departure Impression: Primary Impression: Insect bite Disposition: 01 HOME, SELF-CARE Condition: STABLE Referrals: MEGHANN MADRIGAL MD (PCP) Patient Instructions: Insect Bite Additional Instructions: Follow up with primary care physician. Use medication as prescribed. Scripts Ibuprofen (IBUPROFEN) 600 Mg Tablet 600 MG PO PRN Q6HRS PRN for INFLAMMATION, #20 TAB Prov: PEGGY JOSEPH KM 02/21/19 Hydrocortisone (HYDROCORTISONE) 453.6 Gm Cream..g. 1 GLORIA TP PRN BID, #30 GM Prov: PEGGY JOSEPH KM 02/21/19 Sulfamethoxazole/Trimethoprim (BACTRIM DS TABLET) 1 Each Tablet 1 TAB PO BID, #14 TAB Prov: SPENCERSAMUEL ROBLESNNA Magalys BARBOUR 02/21/19 Attending Signature Attending Signature I have reviewed the PA/REFRIGERATOR REPAIR TECHNICIAN's note and plan of care. I was available for consultation as needed during the patient's visit in the emergency department. I agree with the clinical impression, plan, and disposition. (REMBERTO RANKIN DO) Problem Qualifiers Primary Impression: Insect bite Encounter type: initial encounter Site of insect bite: head Site of insect bite of head: other part Qualified Codes: S00.96XA - Insect bite (nonvenomous) of unspecified part of head, initial encounter; W57.XXXA - Bitten or stung by nonvenomous insect and other nonvenomous arthropods, initial encounter JAKEPEGGY Dowell APRN Feb 21, 2019 00:22 REMBERTO RANKIN DO Feb 25, 2019 03:54
[2019-02-21] MEDS ORDERED: IBUP-1007 PO (00:26)
== END 2019-02-21 00:31 | disposition home or self-care (01) ==
LOC: ER 23:43
DX: S00.86XA Insect bite (nonvenomous) of other part of head, initial encounter (principal); E11.9 Type 2 diabetes mellitus without complications; E78.00 Pure hypercholesterolemia, unspecified; I10 Essential (primary) hypertension; Z90.49 Acquired absence of other specified parts of digestive tract; Z88.0 Allergy status to penicillin; W57.XXXA Bitten or stung by nonvenomous insect and other nonvenomous arthropods, initial encounter; Y93.89 Activity, other specified; Y92.89 Other specified places as the place of occurrence of the external cause; Y99.8 Other external cause status
CPT/HCPCS: 99283

== ENCOUNTER 2021-07-05 20:27 | Emergency (ER) | payer OTHER ==
[~2021-07-05] VITALS: Ht 162.6 cm; Wt 80.0 kg
[~2021-07-05 20:27] MED LIST changes: +AMLO-54 PO; -AMLO1CAP54 PO; -CLIN150C14 PO; +CLIN150C16 PO; +CYCL10TA19 PO; -CYCL10TA2 PO; +HYDR453.3 TP; +IBUP-1007 PO; +SULF1TAB24 PO
[2021-07-05 22:37] LABS: INFLUENZA A PATIENT NEGATIVE (NEGATIVE); INFLUENZA B PATIENT NEGATIVE (NEGATIVE)
[2021-07-05 23:00] VITALS: BP 205/100
--- NOTE | 2021-07-05 23:05 | RAD ---
EXAM: XR CHEST 1V 07/05/2021 9:58 PM CLINICAL INDICATION: Cough COMPARISON: Chest radiograph 11/04/2018 TECHNIQUE: AP upright view of the chest FINDINGS: The heart and mediastinum are normal. Lungs are hypoexpanded. No consolidation, pleural effusion, or pneumothorax. Pulmonary vascularity is normal. The thoracic skeleton is intact. IMPRESSION: No acute cardiopulmonary abnormality. Electronically signed by: Rea Tamayo MD (07/05/2021 11:02 PM) [id number]
--- NOTE | 2021-07-05 23:14 | PHYS DOC ---
Past Medical History Past Medical History: Diabetes-Type II, High Cholesterol, Hypertension Past Surgical History: Cholecystectomy Smoking Status: Current Every Day Smoker Alcohol Use: None Drug Use: None General Adult EDM: Chief Complaint: COUGH HPI: HPI: Patient is a 65 year old female with history of diabetes type 2, hypertension, high cholesterol, who presents to the ED today complaining of a cough, symptoms for 1 week. Patient denies any fever. Denies any chest pain, reports of nasal congestion. She states she is not vaccinated against COVID-19. Review of Systems: Review of Systems: Constitutional: Denies fever or chills. [] Eyes: Denies change in visual acuity. [] HENT: Reports nasal congestion Respiratory: Reports cough, denies shortness of breath. [] Cardiovascular: Denies chest pain or edema. [] GI: Denies abdominal pain, nausea, vomiting, bloody stools or diarrhea. [] : Denies dysuria. [] Musculoskeletal: Denies back pain or joint pain. [] Integument: Denies rash. [] Neurologic: Denies headache, focal weakness or sensory changes. [] Psychiatric: Denies depression or anxiety. [] Heart Score: C/O Chest Pain: N/A Risk Factors: Risk Factors: DM, Current or recent (<one month) smoker, HTN, HLP, family history of CAD, obesity. Risk Scores: Score 0 - 3: 2.5% MACE over next 6 weeks - Discharge Home Score 4 - 6: 20.3% MACE over next 6 weeks - Admit for Clinical Observation Score 7 - 10: 72.7% MACE over next 6 weeks - Early Invasive Strategies Allergies: Allergies: Allergies Coded Allergies Type Severity Reaction Last Updated Verified Penicillins Allergy Intermediate rash 06/30/15 No Physical Exam: PE: Constitutional: Well developed, well nourished, no acute distress, non-toxic appearance. [] HENT: Normocephalic, atraumatic, bilateral external ears normal, oropharynx moist, no oral exudates, nose normal. [] Eyes: PERRLA, EOMI, conjunctiva normal, no discharge. [] Neck: Normal range of motion, no tenderness, supple, no stridor. [] Cardiovascular:Heart rate regular rhythm, no murmur [] Lungs & Thorax: Bilateral breath sounds clear to auscultation [] Abdomen: Bowel sounds normal, soft, no tenderness, no masses, no pulsatile masses. [] Skin: Warm, dry, no erythema, no rash. [] Back: No tenderness, no CVA tenderness. [] Extremities: No tenderness, no cyanosis, no clubbing, ROM intact, no edema. [] Neurologic: Alert and oriented X 3, normal motor function, normal sensory function, no focal deficits noted. [] Psychologic: Affect normal, judgement normal, mood normal. [] Current Patient Data: Labs: Laboratory Tests Test 07/05/21 22:10 Influenza Type A Antigen Negative (NEGATIVE) Influenza Type B Antigen Negative (NEGATIVE) SARS-CoV-2 Antigen (Rapid) Positive (NEGATIVE) *A Vital Signs: Vital Signs Date Time Temp Pulse Resp B/P (MAP) Pulse Ox O2 Delivery O2 Flow Rate FiO2 07/05/21 21:30 98.1 100 20 178/110 (132) 98 Room Air 98.1 EKG: EKG: [] Radiology/Procedures: Radiology/Procedures: []PROCEDURE: CHEST AP ONLY EXAM: XR CHEST 1V 07/05/2021 9:58 PM CLINICAL INDICATION: Cough COMPARISON: Chest radiograph 11/04/2018 TECHNIQUE: AP upright view of the chest FINDINGS: The heart and mediastinum are normal. Lungs are hypoexpanded. No consolidation, pleural effusion, or pneumothorax. Pulmonary vascularity is normal. The thoracic skeleton is intact. IMPRESSION: No acute cardiopulmonary abnormality. Electronically signed by: Rea Tamayo MD (07/05/2021 11:02 PM) [id number] DICTATED and SIGNED BY: REA TAMAYO MD DATE: 07/05/21 [id number] 0 Course & Med Decision Making: Course & Med Decision Making Pertinent Labs and Imaging studies reviewed. (See chart for details) This is a 65-year-old female patient presented to the ED today complaining of a cough for 1 week. She is unvaccinated against COVID-19. Chest x-ray interpreted by radiologist is negative for any acute findings. Positive for COVID-19. Vitals on arrival to the ED temperature 98.1, heart rate 100, respiration 20 on room air, O2 sats 98%, blood pressure 178/110, patient states she has history of hypertension and her primary care doctor removed her from all her medicines until further notice. Informed patient she needs to notify the PCP her blood pressures are running high. She stated she will call the doctor tomorrow. Supportive care measures recommended for JOLYNN Laird Disclaimer: Sisi Disclaimer: This electronic medical record was generated, in whole or in part, using a voice recognition dictation system. Departure Departure Impression: Primary Impression: Hypertension Qualified Codes: I10 - Essential (primary) hypertension Additional Impressions: Lab test positive for detection of COVID-19 virus Cough URI (upper respiratory infection) Qualified Codes: J06.9 - Acute upper respiratory infection, unspecified Disposition: HOME / SELF CARE / HOMELESS Condition: STABLE Referrals: MEGHANN MADRIGAL MD (PCP) Call your doctor tomorrow morning and let her know your blood pressure is running high Patient Instructions: Cough, Adult, Hypertension, Viral Infections Additional Instructions: You are positive for COVID-19. This is a viral illness. Push fluids, take Tylenol Motrin for pain or fever. Use [id number] Coricidin as needed for your cough. Your blood pressure is running high. Please contact your primary care doctor in the morning and let her know your blood pressures are running high. KEITH ROMERO [employer] INS[employer] Jul 05, 2021 23:14
== END 2021-07-05 23:50 | disposition home or self-care (01) ==
LOC: ER 20:27
DX: U07.1 COVID-19 (principal); E11.9 Type 2 diabetes mellitus without complications; I10 Essential (primary) hypertension; E78.00 Pure hypercholesterolemia, unspecified; F17.200 Nicotine dependence, unspecified, uncomplicated; Z88.0 Allergy status to penicillin
CPT/HCPCS: 71045; 87428; 99285-25